=== PATIENT | male | born 1945 | race African-American/Black ===

== ENCOUNTER 2018-07-25 05:18 | Inpatient (IN) | payer MEDICARE, OTHER ==
[~2018-07-25] VITALS: Ht 167.6 cm; Wt 65.8 kg
[~2018-07-25 05:18] MED LIST: ATOR-2 PO; BICA50TA7 PO; GENTAMICIN 80MG PREMIX 100 ML IV SCH; WARF-53 PO; WARF2.5T83 PO
[2018-07-25] MEDS ORDERED: METO-539 PO (05:21)
[2018-07-25 06:28] LABS: HEMATOCRIT. 40.4 % (42.0-52.0); HEMOGLOBIN. 13.3 g/dL (14.0-18.0); MEAN CORPUSCULAR HEMOGLOBIN 30.3 pg (28.0-32.0); MEAN CORPUSCULAR VOLUME 92.1 fL (80.0-94.0); RED BLOOD CELL COUNT 4.39 mill/uL (4.7-6.1); RED CELL DISTRIBUTION WIDTH 14.4 % (11.6-14.6)
[2018-07-25 06:29] LABS: EOSINOPHILS % 3.8 % (0.0-5.0); LYMPHOCYTES % 21.6 % (20.0-50.0); MEAN PLATELET VOLUME 8.2 fl (7.4-10.4); MONOCYTES % 9.1 % (2.0-8.0); NEUTROPHILS % 64.5 % (40.0-76.0); PLATELET 302 x1000/uL (130-400)
[2018-07-25 06:34] LABS: INR 1.1; PARTIAL THROMBOPLASTIN TIME 27.7 sec (23.4-31.0); PROTHROMBIN TIME 10.6 sec (9.1-11.1)
[2018-07-25] MEDS ORDERED: BUPIVACAINE HCL 0.5% (5MG/ML) 50ML ONE (06:52)
[2018-07-25] MEDS ORDERED: FENTANYL CITRATE/PF 50MCG/ML 2ML VIAL ONE (06:55)
[2018-07-25] MEDS ORDERED: ROCURONIUM BROMIDE 10MG/ML VIAL 5ML IV ONE (06:56)
[2018-07-25] MEDS ORDERED: CEFAZOLIN SODIUM 1000MG/VIAL ONE (06:56)
[2018-07-25] MEDS ORDERED: LIDOCAINE HCL/PF 1% 10 MG/ML 5ML VIAL ONE (06:56)
[2018-07-25] MEDS ORDERED: SODIUM CHLORIDE 0.9% 10ML VIAL ONE ×3 (06:56→07:38)
[2018-07-25] MEDS ORDERED: MIDAZOLAM HCL 2 MG/2 ML VIAL ONE (06:56)
[2018-07-25] MEDS ORDERED: PROPOFOL 200MG/20ML VIAL IV ONE (06:56)
[2018-07-25] MEDS ORDERED: OPIUM/BELLADONNA ALKALOIDS 30/16.2MG SUPP PR SCH (07:00)
[2018-07-25] MEDS ORDERED: EPHEDRINE SULFATE 50MG/ML VIAL ONE (07:17)
[2018-07-25] MEDS ORDERED: METOPROLOL TARTRATE 5MG/5ML VIAL IV ONE ×2 (07:35→07:52)
[2018-07-25] MEDS ORDERED: PHENYLEPHRINE HCL 10 MG/ML 1ML (IV VIAL) IV ONE (07:37)
[2018-07-25 07:38] LABS: CHLORIDE 108 mEq/L (98-107)
[2018-07-25] MEDS ORDERED: ONDANSETRON HCL 4MG/2ML INJ ONE (07:49)
[2018-07-25] MEDS ORDERED: ESMOLOL HCL 10MG/ML 10ML VIAL IV ONE (08:06)
[2018-07-25] MEDS ORDERED: GLYCOPYRROLATE 0.2 MG/ML 2ML VIAL ONE (08:35)
[2018-07-25] MEDS ORDERED: NEOSTIGMINE METHYLSULFATE 1MG/ML 10 ML VIAL ONE (08:35)
[2018-07-25] MEDS ORDERED: OPIUM/BELLADONNA ALKALOIDS 30/16.2MG SUPP ONE (09:12)
[2018-07-25] MEDS ORDERED: LORAZEPAM 1MG TABLET PO PRN (09:30)
[2018-07-25] MEDS ORDERED: ONDANSETRON HCL 4MG/2ML INJ IV PRN (09:45)
[2018-07-25] MEDS ORDERED: MORPHINE SULFATE 4 MG/ML CPJ (NOT FOR IM USE) IV PRN (09:45)
[2018-07-25] MEDS ORDERED: NALOXONE INJ IV PRN (11:00)
[2018-07-25] MEDS ORDERED: MORPHINE PCA 50MG/50ML IV PRN (11:00)
[2018-07-25] MEDS ORDERED: DIPHENHYDRAMINE INJ IV PRN (11:00)
[2018-07-25] MEDS ORDERED: ONDANSETRON INJ IV PRN (11:00)
[2018-07-25 12:20] LABS: HEMATOCRIT 32.5 % (42.0-52.0); HEMOGLOBIN 10.6 g/dL (14.0-18.0)
[2018-07-25 12:30] VITALS: BP 120/88
[2018-07-25] MEDS ORDERED: GENTAMICIN 80MG PREMIX 100 ML IV SCH (15:00)
[2018-07-25 16:00] VITALS: BP 128/82
[2018-07-25] MEDS: OXYBUTYNIN CHLORIDE 5MG TABLET PO SCH ×2 (17:47→22:12)
[2018-07-25] MEDS: METOPROLOL TARTRATE 50MG TABLET PO SCH (18:47)
[2018-07-25 20:00] VITALS: BP 108/60
[2018-07-25] MEDS ORDERED: METOPROLOL TARTRATE 50MG TABLET PO SCH (21:00)
[2018-07-25 23:45] VITALS: BP 102/61
[2018-07-26] MEDS ORDERED: GENTAMICIN 80MG PREMIX 100 ML IV SCH (02:00)
[2018-07-26 04:00] VITALS: BP 98/66
[2018-07-26] MEDS: OXYBUTYNIN CHLORIDE 5MG TABLET PO SCH ×3 (07:06→20:35)
[2018-07-26 07:15] LABS: BASOPHILS % 0.3 % (0.0-2.0); EOSINOPHILS % 0.2 % (0.0-5.0); HEMATOCRIT. 29.9 % (42.0-52.0); HEMOGLOBIN. 10.1 g/dL (14.0-18.0); LYMPHOCYTES % 14.6 % (20.0-50.0); MEAN CORPUSCULAR HEMOGLOBIN 30.9 pg (28.0-32.0); MEAN CORPUSCULAR VOLUME 91.7 fL (80.0-94.0); MEAN PLATELET VOLUME 8.4 fl (7.4-10.4); MONOCYTES % 9.6 % (2.0-8.0); NEUTROPHILS % 75.3 % (40.0-76.0); PLATELET 227 x1000/uL (130-400); RED BLOOD CELL COUNT 3.27 mill/uL (4.7-6.1); RED CELL DISTRIBUTION WIDTH 14.2 % (11.6-14.6)
[2018-07-26 07:29] VITALS: BP 116/65
[2018-07-26 07:30] VITALS: BP 99/65
[2018-07-26 07:33] LABS: CHLORIDE 107 mEq/L (98-107)
[2018-07-26] MEDS: METOPROLOL TARTRATE 50MG TABLET PO SCH ×2 (09:42→20:39)
[2018-07-26] MEDS: DOCUSATE SODIUM 250MG CAPSULE PO SCH (09:43)
[2018-07-26] MEDS: LEVOFLOXACIN 500MG TABLET PO SCH (10:29)
[2018-07-26] MEDS: BICALUTAMIDE 50 MG TABLET PO SCH (10:29)
[2018-07-26 12:00] VITALS: BP 99/65
[2018-07-26] MEDS: FERROUS SULFATE 325MG TABLET PO SCH ×2 (13:17→16:46)
[2018-07-26] MEDS ORDERED: TRAMADOL 50MG TABLET PO PRN (13:45)
[2018-07-26] MEDS ORDERED: OXYBUTYNIN CHLORIDE 5MG TABLET PO SCH (13:45)
[2018-07-26] MEDS ORDERED: OPIUM/BELLADONNA ALKALOIDS 30/16.2MG SUPP PR STA (19:41)
[2018-07-26] MEDS ORDERED: OPIUM/BELLADONNA ALKALOIDS 30/16.2MG SUPP PR NR (19:47)
[2018-07-26 20:00] VITALS: BP 101/77
[2018-07-26] MEDS ORDERED: ALPRAZOLAM 0.25 MG TABLET PO PRN (20:45)
[2018-07-26] MEDS ORDERED: LORAZEPAM 2MG/ML CPJ IV PRN (20:45)
[2018-07-27 04:00] VITALS: BP 103/64
[2018-07-27] MEDS: OXYBUTYNIN CHLORIDE 5MG TABLET PO SCH ×3 (06:04→21:16)
[2018-07-27] MEDS: MAGNESIUM HYDROXIDE 400MG/5ML 30ML UDC PO PRN ×2 (06:04→17:54)
[2018-07-27 06:21] LABS: BASOPHILS % 0.4 % (0.0-2.0); EOSINOPHILS % 0.4 % (0.0-5.0); HEMATOCRIT. 29.8 % (42.0-52.0); HEMOGLOBIN. 9.8 g/dL (14.0-18.0); LYMPHOCYTES % 13.2 % (20.0-50.0); MEAN CORPUSCULAR HEMOGLOBIN 30.2 pg (28.0-32.0); MEAN CORPUSCULAR VOLUME 91.7 fL (80.0-94.0); MEAN PLATELET VOLUME 8.5 fl (7.4-10.4); MONOCYTES % 12.2 % (2.0-8.0); NEUTROPHILS % 73.8 % (40.0-76.0); PLATELET 241 x1000/uL (130-400); RED BLOOD CELL COUNT 3.24 mill/uL (4.7-6.1); RED CELL DISTRIBUTION WIDTH 13.6 % (11.6-14.6)
[2018-07-27 08:17] VITALS: BP 100/64
[2018-07-27] MEDS: BICALUTAMIDE 50 MG TABLET PO SCH (08:21)
[2018-07-27] MEDS: DOCUSATE SODIUM 250MG CAPSULE PO SCH (08:21)
[2018-07-27] MEDS: FERROUS SULFATE 325MG TABLET PO SCH ×3 (08:21→17:55)
[2018-07-27] MEDS ORDERED: SODIUM CHLORIDE 0.9% 250ML IV SOLN IV ONE (09:45)
[2018-07-27] MEDS: METOPROLOL TARTRATE 50MG TABLET PO SCH ×2 (10:26→21:16)
[2018-07-27] MEDS: LEVOFLOXACIN 500MG TABLET PO SCH (10:26)
[2018-07-27 12:00] VITALS: BP 119/76
[2018-07-27 16:47] VITALS: BP 117/70
[2018-07-27] MEDS ORDERED: WARFARIN SODIUM 2.5MG TABLET PO SCH (18:00)
[2018-07-27 20:00] VITALS: BP 110/79
[2018-07-28 04:00] VITALS: BP 105/71
[2018-07-28] MEDS: OXYBUTYNIN CHLORIDE 5MG TABLET PO SCH ×3 (05:00→21:31)
[2018-07-28 08:30] VITALS: BP 113/80
[2018-07-28] MEDS: METOPROLOL TARTRATE 50MG TABLET PO SCH ×2 (08:47→21:31)
[2018-07-28] MEDS: DOCUSATE SODIUM 250MG CAPSULE PO SCH (08:47)
[2018-07-28] MEDS: FERROUS SULFATE 325MG TABLET PO SCH ×3 (08:47→17:52)
[2018-07-28] MEDS: BICALUTAMIDE 50 MG TABLET PO SCH (09:00)
[2018-07-28] MEDS: LEVOFLOXACIN 500MG TABLET PO SCH (11:44)
[2018-07-28] MEDS: MAGNESIUM HYDROXIDE 400MG/5ML 30ML UDC PO PRN (11:44)
[2018-07-28 12:00] VITALS: BP 108/81
[2018-07-28 13:33] LABS: BASOPHILS % 0.5 % (0.0-2.0); EOSINOPHILS % 1.6 % (0.0-5.0); HEMATOCRIT. 31.8 % (42.0-52.0); HEMOGLOBIN. 10.4 g/dL (14.0-18.0); LYMPHOCYTES % 11.6 % (20.0-50.0); MEAN CORPUSCULAR HEMOGLOBIN 30.1 pg (28.0-32.0); MEAN CORPUSCULAR VOLUME 92.1 fL (80.0-94.0); MEAN PLATELET VOLUME 8.6 fl (7.4-10.4); MONOCYTES % 8.3 % (2.0-8.0); PLATELET 290 x1000/uL (130-400); RED BLOOD CELL COUNT 3.45 mill/uL (4.7-6.1); RED CELL DISTRIBUTION WIDTH 14.2 % (11.6-14.6)
[2018-07-28] MEDS ORDERED: OPIUM/BELLADONNA ALKALOIDS 30/16.2MG SUPP PR SCH (14:15)
[2018-07-28] MEDS ORDERED: OPIUM/BELLADONNA ALKALOIDS 30/16.2MG SUPP PR PRN (15:45)
[2018-07-28 16:00] VITALS: BP 118/73
[2018-07-28] MEDS: NEOMY SULF/BACITRAC ZN/POLY OINT 28GM TOP SCH ×2 (17:52→21:33)
[2018-07-28 20:00] VITALS: BP 101/74
[2018-07-28] MEDS ORDERED: OPIUM/BELLADONNA ALKALOIDS 30/16.2MG SUPP PR NR (21:00)
[2018-07-28] MEDS ORDERED: OPIUM/BELLADONNA ALKALOIDS 60/16.2MG SUPP PR ONE (21:00)
[2018-07-29] VITALS: BP 112/66
[2018-07-29 04:00] VITALS: BP 112/77
[2018-07-29] MEDS: OXYBUTYNIN CHLORIDE 5MG TABLET PO SCH ×3 (05:36→21:01)
[2018-07-29] MEDS: NEOMY SULF/BACITRAC ZN/POLY OINT 28GM TOP SCH ×2 (05:41→14:00)
[2018-07-29 08:06] VITALS: BP 101/69
[2018-07-29] MEDS: METOPROLOL TARTRATE 50MG TABLET PO SCH ×2 (09:00→21:01)
[2018-07-29] MEDS: FERROUS SULFATE 325MG TABLET PO SCH ×3 (09:35→17:34)
[2018-07-29] MEDS: DOCUSATE SODIUM 250MG CAPSULE PO SCH (09:35)
[2018-07-29] MEDS: BICALUTAMIDE 50 MG TABLET PO SCH (09:37)
[2018-07-29 12:00] VITALS: BP 102/78
[2018-07-29] MEDS: LEVOFLOXACIN 500MG TABLET PO SCH (13:17)
[2018-07-29] MEDS ORDERED: SODIUM CHLORIDE 0.9% 250 ML IV NR ×2 (13:35→13:45)
[2018-07-29] MEDS ORDERED: NON FORMULARY PATIENT HOME MED EA XX SCH (13:45)
[2018-07-29] MEDS ORDERED: DILTIAZEM HCL 5MG/ML 5ML VIAL IV NR ×2 (14:00)
[2018-07-29 15:16] LABS: BASOPHILS % 0.7 % (0.0-2.0); EOSINOPHILS % 2.6 % (0.0-5.0); HEMATOCRIT. 32.1 % (42.0-52.0); HEMOGLOBIN. 10.6 g/dL (14.0-18.0); LYMPHOCYTES % 17.6 % (20.0-50.0); MEAN CORPUSCULAR HEMOGLOBIN 30.2 pg (28.0-32.0); MEAN CORPUSCULAR VOLUME 91.7 fL (80.0-94.0); MEAN PLATELET VOLUME 8.1 fl (7.4-10.4); MONOCYTES % 8.3 % (2.0-8.0); NEUTROPHILS % 70.8 % (40.0-76.0); PLATELET 350 x1000/uL (130-400); RED BLOOD CELL COUNT 3.51 mill/uL (4.7-6.1); RED CELL DISTRIBUTION WIDTH 13.8 % (11.6-14.6)
[2018-07-29 15:53] LABS: CHLORIDE 104 mEq/L (98-107)
[2018-07-29 16:00] VITALS: BP 115/74
[2018-07-29] MEDS: POTASSIUM CHLORIDE 20MEQ TABLET SR PO SCH (17:22)
[2018-07-29 20:00] VITALS: BP 113/76
[2018-07-30] VITALS: BP 100/78
[2018-07-30 04:00] VITALS: BP 122/74
[2018-07-30] MEDS: OXYBUTYNIN CHLORIDE 5MG TABLET PO SCH ×2 (06:11→15:13)
[2018-07-30] MEDS: NEOMY SULF/BACITRAC ZN/POLY OINT 28GM TOP SCH (06:11)
[2018-07-30 06:33] LABS: HEMATOCRIT. 30.3 % (42.0-52.0); HEMOGLOBIN. 10.1 g/dL (14.0-18.0); LYMPHOCYTES % 25.4 % (20.0-50.0); MEAN CORPUSCULAR HEMOGLOBIN 30.8 pg (28.0-32.0); MEAN CORPUSCULAR VOLUME 92.1 fL (80.0-94.0); MEAN PLATELET VOLUME 8.2 fl (7.4-10.4); MONOCYTES % 9.6 % (2.0-8.0); PLATELET 382 x1000/uL (130-400); RED BLOOD CELL COUNT 3.29 mill/uL (4.7-6.1); RED CELL DISTRIBUTION WIDTH 13.7 % (11.6-14.6)
[2018-07-30 08:00] VITALS: BP 113/66
[2018-07-30] MEDS: BICALUTAMIDE 50 MG TABLET PO SCH (09:29)
[2018-07-30] MEDS: FERROUS SULFATE 325MG TABLET PO SCH ×2 (09:30→15:13)
[2018-07-30] MEDS: DOCUSATE SODIUM 250MG CAPSULE PO SCH (09:30)
[2018-07-30] MEDS: METOPROLOL TARTRATE 50MG TABLET PO SCH (09:31)
[2018-07-30] MEDS: POTASSIUM CHLORIDE 20MEQ TABLET SR PO SCH (09:31)
[2018-07-30] MEDS ORDERED: DIGOXIN 500MCG/2ML AMP IV SCH ×2 (10:15→16:00)
[2018-07-30] MEDS: MAGNESIUM HYDROXIDE 400MG/5ML 30ML UDC PO PRN (10:38)
[2018-07-30] MEDS: LEVOFLOXACIN 500MG TABLET PO SCH (11:11)
[2018-07-30 11:52] LABS: CHLORIDE 106 mEq/L (98-107)
[2018-07-30 12:00] VITALS: BP 114/82
[2018-07-30] MEDS ORDERED: CIPR-263 PO (16:31)
[2018-07-30] MEDS ORDERED: DOCU-138 PO (16:33)
[2018-07-30] MEDS ORDERED: FERR325T6 PO (16:33)
[2018-07-31] MEDS ORDERED: DIGOXIN 500MCG/2ML AMP IV SCH (18:00)
== END 2018-07-30 17:50 | disposition home or self-care (01) | DRG 707 ==
LOC: OR 05:18 → 8WST 05:19 → EDSTATUS 07:00
PROVIDERS: ADMIT Urology; ATTEND Urology
PROC: 0VT00ZZ Resection of Prostate, Open Approach (ICD-10-PCS; principal; 2018-07-25 07:00)
DX: N40.1 Benign prostatic hyperplasia with lower urinary tract symptoms (principal); D62 Acute posthemorrhagic anemia; N13.8 Other obstructive and reflux uropathy; R33.8 Other retention of urine; I48.2 Chronic atrial fibrillation; I73.9 Peripheral vascular disease, unspecified; N32.89 Other specified disorders of bladder; Z79.01 Long term (current) use of anticoagulants; Z87.891 Personal history of nicotine dependence
CPT/HCPCS: 36415; 71045; 80048; 80051; 83880; 84443; 85014; 85018; 88309; 93005; A4216; J0690; J1160; J1200; J1580; J2060; J2250; J2270; J2370; J2405; J2704; J2710; J3010; J3490; J7030; J7040; J7050; J7120